=== PATIENT | female | born 1980 | race Caucasian/White ===

== ENCOUNTER 2016-12-12 17:52 | Emergency (ER) | payer OTHER ==
[2016-12-12 18:06] VITALS: BP 130/72
[2016-12-12] MEDS ORDERED: Tetan/Diph/Pertus SYR(Tdap)* 0.5 ML SYR(BOOSTRIX) use SYR IM ONE (18:13)
--- NOTE | 2016-12-12 18:21 | UC ---
Laceration HPI - HPI Summary HPI Summary: Pt presents with c/o laceration to right palmar side of right third finger and just distal to PIP joint. Pt was moving a clothes washing machine and cut her right finger on the underside of metal washing machine - History Of Current Complaint Chief Complaint: UCLaceration Stated Complaint: LACERATION RIGHT MIDDLE FINGER Time Seen by Provider: 12/12/16 18:02 Hx Obtained From: Patient Hx Last Menstrual Period: 12/08/16 Laceration Location: Finger - right 3rd finger Mechanism Of Injury: Sharp Trauma Onset/Duration: Sudden Onset Severity: Mild Aggravating Factors: Movement Related History: Dominant Hand Right - Allergies/Home Medications Allergies/Adverse Reactions: Allergies Allergy/AdvReac Type Severity Reaction Status Date / Time Azithromycin Allergy Rash Verified 12/12/16 18:01 Cefaclor [From Ceclor] Allergy dyspnea Verified 12/12/16 18:01 Penicillins Allergy Rash Verified 12/12/16 18:01 environmental allergies Allergy Congestion Uncoded 12/12/16 18:01 PMH/Surg Hx/FS Hx/Imm Hx Previously Healthy: Yes - Surgical History Surgical History: Yes Surgery Procedure, Year, and Place: c section 2007. appy 2003 - Family History Known Family History: Negative: Cardiac Disease, Hypertension, Diabetes - Social History Occupation: Employed Full-time Lives: With Family Alcohol Use: None Substance Use Type: None Smoking Status (MU): Never Smoked Tobacco Have You Smoked in the Last Year: No - Immunization History Most Recent Influenza Vaccination: not yet 2016 Review of Systems Constitutional: Negative Skin: Other - laceration Eyes: Negative ENT: Negative Respiratory: Negative Cardiovascular: Negative Gastrointestinal: Negative Genitourinary: Negative Motor: Negative, Other - FULL ROM of affected finger, denies, numbness or tingling Neurovascular: Negative Musculoskeletal: Negative Neurological: Negative Psychological: Negative Is Patient Immunocompromised?: No All Other Systems Reviewed And Are Negative: Yes Physical Exam Triage Information Reviewed: Yes Appearance: Well-Appearing Vital Signs: Initial Vital Signs Temp 98.3 F 12/12/16 18:01 Pulse 70 12/12/16 18:01 Resp 16 12/12/16 18:01 BP 130/72 12/12/16 18:01 Pulse Ox 98 12/12/16 18:01 Vital Signs Reviewed: Yes Eye Exam: Normal ENT Exam: Normal Dental Exam: Normal Neck exam: Normal Respiratory: Positive: No respiratory distress Musculoskeletal Exam: Normal Musculoskeletal: Positive: Strength Intact, ROM Intact Neurological Exam: Normal Psychological Exam: Normal Skin Exam: Other - 8 mm laceration to right 3rd finger anterior aspect Laceration Repair - Laceration Repair 1 Description: Linear Laceration Size After Repair: Length (cm) - .8, Width (mm) - 2, Depth (mm) - 2 Modified For Repair: No Irrigation With Pressure Irrigation Device: Yes Closure Material: Skin Adhesive, SteriStrips Closure Method: Single Layer Suture Of: Skin Laceration Course/Dx - Course/Dx Course Of Treatment: laceration to right 3rd finger repaired with skin adhesive and steri strips. edges well approximated. Bleed controlled. Pt was not UTD with tetanus vaccine. Booterix given - Differential Dx - Laceration/Wound Differental Diagnoses: Laceration Provider Diagnoses: laceration to right 3rd finger. repaired with skin adhesive and steri strips Discharge - Discharge Plan Condition: Stable Disposition: HOME Prescriptions: Sulfamethox/Trimethoprim DS* [Bactrim DS 800/160 TAB*] 1 tab PO Q12H #6 tab Patient Education Materials: Laceration (ED), Skin Adhesive Care (ED) Referrals: Xi Mar [Primary Care Provider] - If Needed Additional Instructions: Keep the wound clean and dry for 1 week. Do not remove the steri strips or the skin adhesive. Do not apply antibiotic ointment to the owund. Please wear the finger splint for 1 week.
== END 2016-12-12 18:43 | disposition home or self-care (01) ==
LOC: UCCORT 17:52
DX: S61.212A Laceration without foreign body of right middle finger without damage to nail, initial encounter (principal); W45.8XXA Other foreign body or object entering through skin, initial encounter; Y93.89 Activity, other specified; Y92.9 Unspecified place or not applicable; Z88.0 Allergy status to penicillin
CPT/HCPCS: 12001; 90471; 90715; 99212; G0463